=== PATIENT | female | born 1960 | race Caucasian/White ===

== ENCOUNTER 2018-06-28 20:00 | Emergency (ER) | payer MEDICAID ==
[~2018-06-28] VITALS: Ht 170.2 cm; Wt 77.1 kg
[~2018-06-28 20:00] MED LIST: ACCUNEB0.63 MG/3 IH; AMITRIPTYLINE H50 M3 PO; ARTIFICIAL TEA1 EACH OP; ASMANEX0.135 G1 INH; CALCIUM 500+VI1 EACH PO; CLARITIN10 MG PO; COLACE100 MG PO; DOXYCYCLINE 10100 M1 PO; DUONEB 2.5-0.5 M3 ML INH; ERGOCALCIF50000 UNIT PO; FAMOTIDINE40 MG PO; FLEXERIL PO; FLONASE 0.05%50 MCG NASAL; FLOVENT HFA 1110 MCG IH; HYDROXYZINE HCL25 M1 PO; IRON325 PO; LEVAQUIN 500 M500 M2 PO; LEVAQUIN 500 M500 MG PO; MEDROLDOSEPACK PO; MELADOX3 MG PO; MELATONIN3 MG; NYSTATIN1 EA10 MC; PATANASE30.5 GM NS; PREDNISONE 10 M10 M1 PO; PREDNISONE 20 M20 M1 PO; PREDNISONE 20 M20 MG PO; PROAIR HFA8.5 GM IH; PROMS25 WY RECTAL; SERTRALINE HCL50 MG PO; SYMBICORT160 MCG/4. INH; TESSALON PERLE100 MG PO; TRAMADOL 50 MG50 MG PO; ULTRAM 50MG TAB50 MG PO; XANAX 0.5 MG0.5 MG PO; ZOFRAN ODT4 MG PO; ZOLOFT100 MG PO; ZPAK PO
[2018-06-28] MEDS ORDERED: NARCAN4 MG NASAL (20:16)
[2018-06-28] MEDS ORDERED: ZANAFLEX2 MG PO (20:17)
[2018-06-28 21:45] VITALS: BP 143/68
== END 2018-06-28 21:45 | disposition home or self-care (01) ==
LOC: M.ERS 20:00
DX: K64.5 Perianal venous thrombosis (principal)

== ENCOUNTER 2018-06-29 21:36 | Emergency (ER) | payer MEDICAID ==
[~2018-06-29] VITALS: Ht 170.2 cm; Wt 77.1 kg
[~2018-06-29 21:36] MED LIST changes: +NARCAN4 MG NASAL; +ZANAFLEX2 MG PO
[2018-06-29 23:02] LABS: ABSOLUTE BASOPHILS 0.1 thou/uL (0.0-0.2); ABSOLUTE EOSINOPHILS 0.3 thou/uL (0.0-0.7); ABSOLUTE LYMPHOCYTES 2.5 thou/uL (0.8-5.3); ABSOLUTE MONOCYTES 0.6 thou/uL (0.0-1.2); ABSOLUTE NEUTROPHILS 4.6 thou/uL (1.6-8.1); BASOPHILS 1.2 %; HEMOGLOBIN 12.8 gm/dL (12.0-15.0); LYMPHOCYTES 30.9 %; MCH 28.7 pg (26.0-34.0); MCHC 33.5 g/dL (28.0-37.0); MCV 85.5 fL (80.0-100.0); MONOCYTES 7.2 %; MPV 8.8 fl. (7.2-11.1); NUCLEATED RBCS 0 /100WBC; PLATELET COUNT* 259 thou/uL (150-400); POLYS 56.7 %; RBC 4.45 mil/uL (4.20-5.00); RDW-CV 14.6 % (10.5-14.5); WBC 8.2 thou/uL (4.0-11.0)
[2018-06-29 23:06] LABS: CALCIUM 9.1 mg/dL (8.5-10.1); CREATININE 0.9 mg/dL (0.6-1.3); POTASSIUM 3.7 mmol/L (3.5-5.1)
[2018-06-29 23:10] LABS: ALBUMIN 3.9 g/dL (3.4-5.0); TOTAL BILIRUBIN 0.4 mg/dL (<0.1-1.0)
[2018-06-30] MEDS ORDERED: PROCTOCORT30 MG RECTAL (01:02)
[2018-06-30 01:22] VITALS: BP 142/70
== END 2018-06-30 01:24 | disposition home or self-care (01) ==
LOC: M.ERS 21:36
PROVIDERS: Nurse Practitioner Family
DX: K64.5 Perianal venous thrombosis (principal); J44.9 Chronic obstructive pulmonary disease, unspecified; I50.9 Heart failure, unspecified; K21.9 Gastro-esophageal reflux disease without esophagitis; G43.909 Migraine, unspecified, not intractable, without status migrainosus; F41.9 Anxiety disorder, unspecified; F32.9 Major depressive disorder, single episode, unspecified; Z98.890 Other specified postprocedural states; Z90.710 Acquired absence of both cervix and uterus; Z86.73 Personal history of transient ischemic attack (TIA), and cerebral infarction without residual deficits; Z88.5 Allergy status to narcotic agent; Z88.6 Allergy status to analgesic agent; Z88.8 Allergy status to other drugs, medicaments and biological substances

== ENCOUNTER 2018-09-14 19:15 | Emergency (ER) | payer MEDICAID ==
[~2018-09-14] VITALS: Ht 170.2 cm; Wt 77.1 kg
[~2018-09-14 19:15] MED LIST changes: +PROCTOCORT30 MG RECTAL
[2018-09-14] MEDS ORDERED: ULTRAM 50MG TAB50 MG PO (20:03)
[2018-09-14] MEDS ORDERED: BACTRIM DS TAB1 EACH PO (20:03)
[2018-09-14] MEDS ORDERED: PREDNISONE 20 M20 M1 PO (20:03)
[2018-09-14 20:15] VITALS: BP 130/77
== END 2018-09-14 20:15 | disposition home or self-care (01) ==
LOC: M.ERS 19:15
DX: M77.9 Enthesopathy, unspecified (principal); J44.9 Chronic obstructive pulmonary disease, unspecified; I50.9 Heart failure, unspecified; K21.9 Gastro-esophageal reflux disease without esophagitis; G43.909 Migraine, unspecified, not intractable, without status migrainosus; F32.9 Major depressive disorder, single episode, unspecified; F41.9 Anxiety disorder, unspecified; Z90.710 Acquired absence of both cervix and uterus; Z98.890 Other specified postprocedural states; Z86.73 Personal history of transient ischemic attack (TIA), and cerebral infarction without residual deficits; Z88.5 Allergy status to narcotic agent; Z88.6 Allergy status to analgesic agent; Z88.8 Allergy status to other drugs, medicaments and biological substances

== ENCOUNTER 2019-03-03 11:43 | Emergency (ER) | payer MEDICARE, MEDICAID ==
[~2019-03-03] VITALS: Ht 170.2 cm; Wt 81.7 kg
[~2019-03-03 11:43] MED LIST changes: +BACTRIM DS TAB1 EACH PO
[2019-03-03] MEDS ORDERED: AMITRIPTYLINE H25 M2 PO (11:59)
[2019-03-03] MEDS ORDERED: XANAX 0.5 MG0.5 MG PO (11:59)
[2019-03-03] MEDS ORDERED: CARDIZEM CD120 MG PO (12:00)
[2019-03-03] MEDS ORDERED: ZYRTEC 10 MG TA10 MG PO (12:00)
[2019-03-03] MEDS ORDERED: MELATONIN5 M1 PO (12:01)
[2019-03-03] MEDS ORDERED: STOOL SOFTENER1 EAC2 PO (12:02)
[2019-03-03] MEDS ORDERED: AUGMENTIN 875-1 EACH PO (12:43)
[2019-03-03] MEDS ORDERED: GENTAK5 ML INTRAOCULR (12:43)
[2019-03-03 12:59] VITALS: BP 145/88
== END 2019-03-03 13:01 | disposition home or self-care (01) ==
LOC: M.ERS 11:43
DX: H10.9 Unspecified conjunctivitis (principal); K02.9 Dental caries, unspecified; J44.9 Chronic obstructive pulmonary disease, unspecified; K21.9 Gastro-esophageal reflux disease without esophagitis; F41.9 Anxiety disorder, unspecified; F32.9 Major depressive disorder, single episode, unspecified; G43.909 Migraine, unspecified, not intractable, without status migrainosus; I50.9 Heart failure, unspecified; Z88.5 Allergy status to narcotic agent; Z86.73 Personal history of transient ischemic attack (TIA), and cerebral infarction without residual deficits; Z88.6 Allergy status to analgesic agent; Z88.8 Allergy status to other drugs, medicaments and biological substances; Z90.710 Acquired absence of both cervix and uterus; Z98.890 Other specified postprocedural states

== ENCOUNTER 2019-12-01 10:26 | Emergency (ER) | payer MEDICARE, MEDICAID ==
[~2019-12-01] VITALS: Ht 167.6 cm; Wt 83.9 kg
[~2019-12-01 10:26] MED LIST changes: +AMITRIPTYLINE H25 M2 PO; +AUGMENTIN 875-1 EACH PO; +CARDIZEM CD120 MG PO; +GENTAK5 ML INTRAOCULR; +MELATONIN5 M1 PO; +STOOL SOFTENER1 EAC2 PO; +ZYRTEC 10 MG TA10 MG PO
[2019-12-01] MEDS ORDERED: FLEXERIL PO (10:51)
[2019-12-01] MEDS ORDERED: PERCOCET 5-3251 EACH PO (12:49)
[2019-12-01 13:03] VITALS: BP 118/72
== END 2019-12-01 13:03 | disposition home or self-care (01) ==
LOC: M.ERS 10:26
DX: M54.5 Low back pain (principal); R10.2 Pelvic and perineal pain; I50.9 Heart failure, unspecified; J45.909 Unspecified asthma, uncomplicated; J44.9 Chronic obstructive pulmonary disease, unspecified; K21.9 Gastro-esophageal reflux disease without esophagitis; G43.909 Migraine, unspecified, not intractable, without status migrainosus; F32.9 Major depressive disorder, single episode, unspecified; F41.9 Anxiety disorder, unspecified; Z90.710 Acquired absence of both cervix and uterus; Z98.890 Other specified postprocedural states; Z86.73 Personal history of transient ischemic attack (TIA), and cerebral infarction without residual deficits; Z88.6 Allergy status to analgesic agent; Z88.8 Allergy status to other drugs, medicaments and biological substances

== ENCOUNTER 2020-08-21 11:49 | Emergency (ER) | payer MEDICARE, MEDICAID ==
[~2020-08-21] VITALS: Ht 170.2 cm; Wt 72.6 kg
[~2020-08-21 11:49] MED LIST changes: +PERCOCET 5-3251 EACH PO
[2020-08-21] MEDS ORDERED: CIPROFLOXIN HC2.5 M1 OPHTHALMIC (13:23)
[2020-08-21 14:24] VITALS: BP 130/79
== END 2020-08-21 14:29 | disposition home or self-care (01) ==
LOC: M.ERS 11:49
DX: S05.02XA Injury of conjunctiva and corneal abrasion without foreign body, left eye, initial encounter (principal); H11.32 Conjunctival hemorrhage, left eye; J44.9 Chronic obstructive pulmonary disease, unspecified; K21.9 Gastro-esophageal reflux disease without esophagitis; G43.909 Migraine, unspecified, not intractable, without status migrainosus; I25.2 Old myocardial infarction; I50.9 Heart failure, unspecified; Z86.73 Personal history of transient ischemic attack (TIA), and cerebral infarction without residual deficits; Z90.710 Acquired absence of both cervix and uterus; Z79.899 Other long term (current) drug therapy; Z88.6 Allergy status to analgesic agent; Z88.8 Allergy status to other drugs, medicaments and biological substances; W22.8XXA Striking against or struck by other objects, initial encounter; Y93.89 Activity, other specified; Y92.89 Other specified places as the place of occurrence of the external cause; Y99.8 Other external cause status

== ENCOUNTER 2021-08-31 12:46 | Emergency (ER) | payer MEDICARE, MEDICAID ==
[~2021-08-31] VITALS: Ht 167.6 cm; Wt 81.7 kg
[~2021-08-31 12:46] MED LIST changes: +CIPROFLOXIN HC2.5 M1 OPHTHALMIC
[2021-08-31 13:41] LABS: ABSOLUTE EOSINOPHILS 0.1 thou/uL (0.0-0.7); ABSOLUTE LYMPHOCYTES 0.7 thou/uL (0.8-5.3); ABSOLUTE MONOCYTES 0.5 thou/uL (0.0-1.2); ABSOLUTE NEUTROPHILS 4.4 thou/uL (1.6-8.1); BASOPHILS 0.9 %; EOSINOPHILS 1.6 %; HEMATOCRIT 43.3 % (37.0-47.0); HEMOGLOBIN 14.7 gm/dL (12.0-15.0); LYMPHOCYTES 12.1 %; MCH 28.4 pg (26.0-34.0); MCV 83.6 fL (80.0-100.0); MPV 8.5 fl. (7.2-11.1); NUCLEATED RBCS 0 /100WBC; PLATELET COUNT* 246 thou/uL (150-400); POLYS 77.4 %; RBC 5.18 mil/uL (4.20-5.00); RDW-CV 14.5 % (10.5-14.5); WBC 5.7 thou/uL (4.0-11.0)
[2021-08-31 13:50] LABS: INFLUENZA A ANTIGEN Negative (Negative); INFLUENZA B ANTIGEN Negative (Negative)
[2021-08-31 13:51] LABS: CALCIUM 9.1 mg/dL (8.5-10.1); CREATININE 0.9 mg/dL (0.6-1.3); POTASSIUM 3.5 mmol/L (3.5-5.1)
--- NOTE | 2021-08-31 13:59 | EKG ---
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: : 1960 Requested By: Savanna Richardson Order Number: [id number] MD: Miguel Trujillo Measurements Intervals Justice Rate: 105 P: 77 LA: 138 QRS: 77 QRSD: 138 T: 72 QT: 359 QTc: 475 Interpretive Statements Sinus rhythm with premature atrial complexes right bundle branch block Baseline wander in lead(s) II,aVR,V1 Compared to ECG 08/06/2016 21:00:18 Right bundle-branch block now present T-wave abnormality no longer present Electronically Signed On 08-31-2021 13:59:08 [employer] by Miguel Trujillo [email or web address] <ELECTRONICALLY SIGNED> By: Miguel Trujillo MD, FACC 08/31/21 1359 1312 1312 Miguel Trujillo MD, FAC /EPI
[2021-08-31 14:01] LABS: ALBUMIN 4.1 g/dL (3.4-5.0); TOTAL BILIRUBIN 0.6 mg/dL (<0.1-1.0); TOTAL PROTEIN 7.6 g/dL (6.4-8.2)
[2021-08-31] MEDS ORDERED: COMPAZINE10 MG PO ×2 (16:29→16:57)
[2021-08-31] MEDS ORDERED: MEDROLDOSEPACK PO ×2 (16:29→16:57)
[2021-08-31] MEDS ORDERED: ZPAK PO ×2 (16:31→16:57)
[2021-08-31 16:59] VITALS: BP 122/70
== END 2021-08-31 16:59 | disposition home or self-care (01) ==
LOC: M.ERS 12:46
PROVIDERS: Nurse Practitioner Family
DX: J44.1 Chronic obstructive pulmonary disease with (acute) exacerbation (principal); Z20.822 Contact with and (suspected) exposure to COVID-19; I50.9 Heart failure, unspecified; I11.0 Hypertensive heart disease with heart failure; E78.5 Hyperlipidemia, unspecified; K21.9 Gastro-esophageal reflux disease without esophagitis; G43.909 Migraine, unspecified, not intractable, without status migrainosus; F32.9 Major depressive disorder, single episode, unspecified; F41.9 Anxiety disorder, unspecified; Z90.710 Acquired absence of both cervix and uterus; Z79.899 Other long term (current) drug therapy; Z88.6 Allergy status to analgesic agent; Z88.5 Allergy status to narcotic agent

== ENCOUNTER 2021-09-16 16:34 | Emergency (ER) | payer MEDICARE, MEDICAID ==
[~2021-09-16] VITALS: Ht 170.2 cm; Wt 74.4 kg
[~2021-09-16 16:34] MED LIST changes: +COMPAZINE10 MG PO
[2021-09-16] MEDS ORDERED: DUO-NEB (16:48)
[2021-09-16] MEDS ORDERED: FLEXERIL PO (18:52)
[2021-09-16] MEDS ORDERED: ZOFRAN ODT4 MG PO (18:52)
[2021-09-16 19:20] VITALS: BP 118/88
== END 2021-09-16 19:21 | disposition home or self-care (01) ==
LOC: M.ERS 16:34
DX: S06.0X0A Concussion without loss of consciousness, initial encounter (principal); S16.1XXA Strain of muscle, fascia and tendon at neck level, initial encounter; S29.012A Strain of muscle and tendon of back wall of thorax, initial encounter; S70.02XA Contusion of left hip, initial encounter; S20.212A Contusion of left front wall of thorax, initial encounter; S40.012A Contusion of left shoulder, initial encounter; S50.02XA Contusion of left elbow, initial encounter; J44.9 Chronic obstructive pulmonary disease, unspecified; I11.0 Hypertensive heart disease with heart failure; I50.9 Heart failure, unspecified; E11.9 Type 2 diabetes mellitus without complications; G43.909 Migraine, unspecified, not intractable, without status migrainosus; R91.1 Solitary pulmonary nodule; K21.9 Gastro-esophageal reflux disease without esophagitis; Z87.891 Personal history of nicotine dependence; Z88.5 Allergy status to narcotic agent; Z88.6 Allergy status to analgesic agent; Z79.899 Other long term (current) drug therapy; Z86.73 Personal history of transient ischemic attack (TIA), and cerebral infarction without residual deficits; W10.8XXA Fall (on) (from) other stairs and steps, initial encounter; Y93.01 Activity, walking, marching and hiking; Y92.89 Other specified places as the place of occurrence of the external cause; Y99.9 Unspecified external cause status